=== PATIENT | male | born 1990 | race Two or more races ===

== ENCOUNTER → 2019-02-27 09:57 | Outpatient (CLI) | payer OTHER | END | disposition home or self-care (01) | LOC: LAB 09:57 | DX: R10.84 Generalized abdominal pain (principal); R94.4 Abnormal results of kidney function studies ==

== ENCOUNTER 2019-02-28 08:34 | Outpatient (CLI) | payer OTHER | END 2019-02-28 08:51 | disposition home or self-care (01) | LOC: TOM 08:34 | DX: R10.84 Generalized abdominal pain (principal) ==